=== PATIENT | male | born 1980 | race African-American/Black ===

== ENCOUNTER 2019-05-31 06:07 | Inpatient (IN) | payer SELFPAY ==
[~2019-05-31] VITALS: Ht 184.2 cm; Wt 87.1 kg
[2019-05-31] MEDS ORDERED: MORPHINE SULFATE 4 MG/ML CPJ (NOT FOR IM USE) IV ONE ×2 (08:00→09:15)
[2019-05-31 08:09] LABS: BASOPHILS % 0.1 % (0.0-2.0); EOSINOPHILS % 1.3 % (0.0-5.0); HEMATOCRIT. 47.6 % (42.0-52.0); HEMOGLOBIN. 15.8 g/dL (14.0-18.0); LYMPHOCYTES % 15.2 % (20.0-50.0); MEAN CORPUSCULAR HEMOGLOBIN 28.1 pg (28.0-32.0); MEAN CORPUSCULAR VOLUME 84.5 fL (80.0-94.0); MEAN PLATELET VOLUME 9.6 fl (7.4-10.4); MONOCYTES % 5.3 % (2.0-8.0); NEUTROPHILS % 78.1 % (40.0-76.0); PLATELET 229 x1000/uL (130-400); RED BLOOD CELL COUNT 5.63 mill/uL (4.7-6.1); RED CELL DISTRIBUTION WIDTH 14.5 % (11.6-14.6)
[2019-05-31 08:17] LABS: CHLORIDE 105 mEq/L (98-107)
[2019-05-31 16:00] VITALS: BP 127/70
[2019-05-31 18:00] VITALS: BP 132/65
[2019-05-31 18:08] VITALS: BP 127/70
[2019-05-31 20:30] VITALS: BP 138/96
== END 2019-05-31 21:55 | disposition left against medical advice (07) | DRG 203 ==
LOC: ER 06:07 → 8WST 09:21 → ENRESERV 13:11
PROVIDERS: ADMIT Internal Medicine; ATTEND Internal Medicine
DX: R07.89 Other chest pain (principal); R00.2 Palpitations; Z53.29 Procedure and treatment not carried out because of patient's decision for other reasons
CPT/HCPCS: 36415; 71045; 83880; 84484; 93005; 99285; J2270

== ENCOUNTER 2019-06-12 01:04 | Inpatient (IN) | payer OTHER, MEDICAID ==
[~2019-06-12] VITALS: Ht 182.9 cm; Wt 86.6 kg
[2019-06-12] MEDS ORDERED: MORPHINE SULFATE 4 MG/ML CPJ (NOT FOR IM USE) IV STA (01:51)
[2019-06-12] MEDS ORDERED: SODIUM CHLORIDE 0.9% 1,000 ML IV ONE (01:51)
[2019-06-12] MEDS ORDERED: ONDANSETRON HCL 4MG/2ML INJ IV STA (01:51)
[2019-06-12] MEDS ORDERED: NITROGLYCERIN OINT 1GM/INCH UDPKT TD ONE (02:00)
[2019-06-12] MEDS ORDERED: ASPIRIN 81MG TABLET PO ONE (02:00)
[2019-06-12 02:13] LABS: BASOPHILS % 0.2 % (0.0-2.0); EOSINOPHILS % 1.3 % (0.0-5.0); HEMATOCRIT. 44.1 % (42.0-52.0); HEMOGLOBIN. 14.9 g/dL (14.0-18.0); LYMPHOCYTES % 13.3 % (20.0-50.0); MEAN CORPUSCULAR HEMOGLOBIN 28.4 pg (28.0-32.0); MEAN CORPUSCULAR VOLUME 84.1 fL (80.0-94.0); MEAN PLATELET VOLUME 9.1 fl (7.4-10.4); MONOCYTES % 5.4 % (2.0-8.0); NEUTROPHILS % 79.8 % (40.0-76.0); PLATELET 206 x1000/uL (130-400); RED BLOOD CELL COUNT 5.25 mill/uL (4.7-6.1); RED CELL DISTRIBUTION WIDTH 14.4 % (11.6-14.6)
[2019-06-12 02:19] LABS: CHLORIDE 107 mEq/L (98-107)
[2019-06-12 02:31] LABS: INR 1.1; PROTHROMBIN TIME 11.4 sec (9.6-11.0)
[2019-06-12] MEDS ORDERED: FENTANYL CITRATE/PF 50MCG/ML 2ML VIAL IV ONE (04:15)
[2019-06-12] MEDS ORDERED: ENOXAPARIN 80MG/0.8ML SYR SUBCUT ONE (06:15)
[2019-06-12] MEDS ORDERED: CLONIDINE 0.1MG TABLET PO PRN (07:15)
[2019-06-12] MEDS ORDERED: ACETAMINOPHEN 325MG TABLET PO PRN (07:15)
[2019-06-12] MEDS ORDERED: ONDANSETRON HCL 4MG/2ML INJ IV PRN (07:15)
[2019-06-12] MEDS ORDERED: DOCUSATE SODIUM 100MG CAPSULE PO PRN (07:15)
[2019-06-12] MEDS ORDERED: AMLODIPINE 10MG TABLET PO SCH (09:00)
[2019-06-12] MEDS ORDERED: ASPIRIN 81MG TABLET PO SCH (09:30)
[2019-06-12 09:43] VITALS: BP 103/70
[2019-06-12 10:02] VITALS: BP 103/70
[2019-06-12 11:51] LABS: T4 FREE 1.06 ng/dL (0.76-1.46)
[2019-06-12 12:22] VITALS: BP 126/57
[2019-06-12 15:14] LABS: CREATINE KINASE 103 IU/L (39-308)
[2019-06-12 15:16] LABS: CREATINE KINASE MB FRACTION < 1.0 ng/mL (0.5-3.6)
[2019-06-12 15:36] VITALS: BP 110/74
[2019-06-13] MEDS ORDERED: ASPIRIN 81MG EC TABLET PO SCH (09:00)
== END 2019-06-12 16:37 | disposition home or self-care (01) | DRG 203 ==
LOC: ER 01:04 → 6WST 03:08 → EDBEDREQTM 03:11 → EDBEDREQ 03:11 → ENRESERV 07:30
PROVIDERS: ADMIT Hospitalist; ATTEND Hospitalist
DX: R07.89 Other chest pain (principal); I10 Essential (primary) hypertension; R94.31 Abnormal electrocardiogram [ECG] [EKG]
CPT/HCPCS: 36415; 71045; 82550; 82553; 83036; 83880; 84439; 84443; 84484; 85379; 93005; 93306; 93970; 96361; 96372; 96374; 96375; 99291; J1650; J2270; J2405; J3010; J7030

== ENCOUNTER 2019-11-13 04:51 | Emergency (ER) | payer SELFPAY ==
[~2019-11-13] VITALS: Ht 185.4 cm; Wt 85.2 kg
[2019-11-13 05:52] LABS: BASOPHILS % 0.2 % (0.0-2.0); EOSINOPHILS % 0.7 % (0.0-5.0); HEMATOCRIT. 47.5 % (42.0-52.0); LYMPHOCYTES % 10.1 % (20.0-50.0); MEAN CORPUSCULAR VOLUME 83.3 fL (80.0-94.0); MEAN PLATELET VOLUME 9.3 fl (7.4-10.4); MONOCYTES % 7.3 % (2.0-8.0); NEUTROPHILS % 81.7 % (40.0-76.0); PLATELET 222 x1000/uL (130-400); RED CELL DISTRIBUTION WIDTH 14.7 % (11.6-14.6)
[2019-11-13 05:58] LABS: CHLORIDE 108 mEq/L (98-107)
[2019-11-13 05:59] LABS: PROTHROMBIN TIME 11.2 sec (9.6-11.0)
[2019-11-13 07:05] VITALS: BP 130/81
== END 2019-11-13 07:06 | disposition home or self-care (01) ==
LOC: ER 04:51
DX: R10.32 Left lower quadrant pain (principal); K62.5 Hemorrhage of anus and rectum
CPT/HCPCS: 36415; 74176; 80053; 85025; 86850; 86900; 99284